=== PATIENT | male | born 1990 | race American Indian/Alaskan Native ===

== ENCOUNTER 2018-08-24 21:10 | Emergency (ER) | payer OTHER ==
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
[2018-08-24] MEDS ORDERED: IBUPROFEN PO ONE (22:47)
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
[2018-08-25 01:24] VITALS: BP 112/64
== END 2018-08-24 23:30 | disposition home or self-care (01) ==
LOC: ED 21:10
DX: S39.012A Strain of muscle, fascia and tendon of lower back, initial encounter (principal); S09.90XA Unspecified injury of head, initial encounter; F17.200 Nicotine dependence, unspecified, uncomplicated; V43.52XA Car driver injured in collision with other type car in traffic accident, initial encounter; Y93.89 Activity, other specified; Y92.488 Other paved roadways as the place of occurrence of the external cause; Y99.8 Other external cause status
CPT/HCPCS: 72100; 99283